=== PATIENT | male | born 1985 | race Caucasian/White ===

== ENCOUNTER 2017-06-08 20:51 | Emergency (ER) | payer OTHER ==
[2017-06-08 21:40] LABS: EOS % 0.6 % (0.0-4.0); HEMATOCRIT 41.4 % (42.0-52.0); HEMOGLOBIN 14.7 g/dL (13.5-18.0); LYMPH# 1.3 (1.50-4.00); MEAN CELL VOLUME 86 fl (78-100); MEAN CORPUSCULAR HEMOGLOBIN 31 pg (27-31); MEAN CORPUSCULAR HGB CONC 36 g/dL (33-37); MEAN PLATELET VOLUME 10.2 fl (7.4-10.4); MONO # 0.4 (0.20-0.80); NEU # 3.6 (1.40-6.50); PLATELET COUNT 195 K/mm3 (130-400); RED CELL DISTRIBUTION WIDTH 12.6 % (11.5-14.5); WHITE BLOOD COUNT 5.4 K/mm3 (4.8-10.8)
[2017-06-08 23:35] VITALS: BP 111/64
== END 2017-06-08 23:35 | disposition short-term general hospital (02) ==
LOC: EDBD 20:51 → ED 20:51 → EDBD 21:00 → ED 21:00
PROVIDERS: Family Medicine
DX: S27.0XXA Traumatic pneumothorax, initial encounter (principal); S11.91XA Laceration without foreign body of unspecified part of neck, initial encounter; S21.312A Laceration without foreign body of left front wall of thorax with penetration into thoracic cavity, initial encounter; X78.1XXA Intentional self-harm by knife, initial encounter; Y92.810 Car as the place of occurrence of the external cause; Z23 Encounter for immunization; R40.2412 Glasgow coma scale score 13-15, at arrival to emergency department
CPT/HCPCS: 90715; A4550; J0690; J1885; J3010; J7120